=== PATIENT | male | born 1975 | race Caucasian/White ===

== ENCOUNTER 2022-05-10 14:40 | Emergency (ER) | payer BC, OTHER, SELFPAY ==
[2022-05-10] MEDS ORDERED: Morphine 4 MG/ML VIAL IVPUSH ONE ×2 (14:47→16:33)
[2022-05-10] MEDS ORDERED: Sodium Chloride 0.9% 10 ML Syringe FLUSH PRN (14:47)
[2022-05-10] MEDS ORDERED: Ondansetron 4 MG/2 ML SDV ONE (14:50)
[2022-05-10] MEDS ORDERED: Ondansetron 4 MG/2 ML SDV IVPUSH ONE (14:51)
[2022-05-10] MEDS ORDERED: Sodium Chloride 0.9% 1,000 ML IV SCH (15:00)
[2022-05-10] MEDS ORDERED: HYDROmorphone 2 MG/ML SDV IV ONE (15:07)
[2022-05-10 15:08] LABS: ESTIMATED GFR 75 mL/min (>60)
[2022-05-10 18:03] VITALS: BP 132/66; PULSE 51
== END 2022-05-10 17:30 ==
LOC: FB.ED 14:40
DX: S82.451A Displaced comminuted fracture of shaft of right fibula, initial encounter for closed fracture (principal); S82.301A Unspecified fracture of lower end of right tibia, initial encounter for closed fracture; X50.1XXA Overexertion from prolonged static or awkward postures, initial encounter; Y93.01 Activity, walking, marching and hiking
CPT/HCPCS: 36415; 73590; 73630; 80053; 84484; 85025; 85610; 85730; 93005; 96361; 96374; 96375; 99284; J1170; J2270; J2405; J7030